=== PATIENT | male | born 1970 | race Caucasian/White ===

== ENCOUNTER 2017-06-14 11:10 | Inpatient (IN) | payer OTHER ==
[~2017-06-14] VITALS: Ht 177.8 cm; Wt 222.0 kg
[~2017-06-14 11:10] MED LIST: ACT30 PO; AMBIEN10 MG PO; AMOXICILLIN500 MG PO; BG MC; CAT0.1 PO; CLONIDINE HCL0.2 MG PO; CORE25 PO; DEXPF IV; ECO81 PO; FERL PO; FUROSEMIDE20 MG PO; GLIPIZIDE10 MG PO; GLU5 PO; HUMULIN R100 U/1 M1 SC; ISO10 PO; L40 PO; LAC PO; LEVOTHYROXINE0.05 M2 PO; LIPI10 PO; NOR5 PO; PHOS PO; POTASSIUM CHLO10 MEQ PO; PRO10I SQ; SINGULAIR10 MG PO; SYMBICORT1 AE2 INH; THERAGRAN-M1 TA4 PO; VANCOMYCIN PER PHARM MC; VENTOLIN H0.09 MG/A1 INH; VITAMIN D32000 I2 PO; VITC PO; ZITHROMAX Z-PA250 MG PO; ZOFI IM
[2017-06-14 12:44] LABS: BASOPHIL % 0.1 % (0-2); PLATELET COUNT 186 x10^3mcL (130-400)
[2017-06-14 12:47] LABS: RED CELL DISTRIBUTION WIDTH 18.5 % (11.5-14.5)
[2017-06-14 12:58] LABS: CK-MB 1.6 ng/mL (0-3.6)
[2017-06-14 13:00] LABS: BILIRUBIN TOTAL 0.92 mg/dL (0.20-1.00); CALCIUM 9.2 mg/dL (8.5-10.1); CARBON DIOXIDE 25.7 mmol/L (21-32); POTASSIUM SERUM 3.4 mmol/L (3.5-5.1); TOTAL PROTEIN, SERUM 7.6 g/dL (6.4-8.2)
[2017-06-14 13:01] LABS: ALBUMIN 3.1 g/dL (3.4-5.0)
[2017-06-14 13:02] LABS: CREATININE SERUM 7.1 mg/dL (0.7-1.3)
[2017-06-14 15:44] LABS: MAGNESIUM 2.2 mg/dL (1.8-2.4); PHOSPHOROUS 2.6 mg/dL (2.5-4.9)
[2017-06-14 15:51] LABS: T3 TOTAL 1.03 ng/mL
[2017-06-14 15:56] LABS: CHOLESTEROL/HDL RATIO 1.9
[2017-06-14 16:29] LABS: FREE T4 1.33 ng/dL (0.76-1.46); FREE THYROXINE INDEX 3.1 ug/dL (1.4-4.5); T4(THYROXINE) 8.9 ug/dL (4.7-13.3)
[2017-06-14 16:42] VITALS: BP 120/62
[2017-06-14 16:44] VITALS: BP 125/79
[2017-06-14] MEDS ORDERED: GLU5 PO (16:45)
[2017-06-14 17:28] LABS: UA SPECIFIC GRAVITY >=1.030 (1.005-1.035); microscopic required? YES; urine erythrocyte 2+ (NEGATIVE)
[2017-06-14 17:39] LABS: AMPHETAMINE QUAL UR POSITIVE (NEG <=1000)
[2017-06-14 19:30] VITALS: BP 127/79
[2017-06-14 23:00] VITALS: BP 102/54
[2017-06-15 03:00] VITALS: BP 99/49
[2017-06-15 04:13] LABS: CALCIUM 8.1 mg/dL (8.5-10.1); CARBON DIOXIDE 27.5 mmol/L (21-32); MAGNESIUM 2.1 mg/dL (1.8-2.4); PHOSPHOROUS 5.1 mg/dL (2.5-4.9); URIC ACID 7.7 mg/dL (3.5-7.2)
[2017-06-15 04:21] LABS: BASOPHIL % 0.2 % (0-2); PLATELET COUNT 160 x10^3mcL (130-400); RED CELL DISTRIBUTION WIDTH 17.2 % (11.5-14.5)
[2017-06-15 04:25] LABS: CREATININE SERUM 8.4 mg/dL (0.7-1.3)
[2017-06-15 08:00] VITALS: BP 110/75
[2017-06-15 11:40] VITALS: BP 112/61
[2017-06-15 16:03] VITALS: BP 141/71
[2017-06-15 20:30] VITALS: BP 133/69
[2017-06-16] VITALS (7 sets, daily range): BP systolic 104–127; BP diastolic 50–77
[2017-06-16 05:29] LABS: BASOPHIL % 0.1 % (0-2); PLATELET COUNT 147 x10^3mcL (130-400)
[2017-06-16 05:33] LABS: CALCIUM 8.3 mg/dL (8.5-10.1); CARBON DIOXIDE 26.2 mmol/L (21-32); MAGNESIUM 2.1 mg/dL (1.8-2.4); PHOSPHOROUS 4.6 mg/dL (2.5-4.9); POTASSIUM SERUM 3.9 mmol/L (3.5-5.1); RED CELL DISTRIBUTION WIDTH 18.8 % (11.5-14.5)
[2017-06-17] VITALS (12 sets, daily range): BP systolic 87–143; BP diastolic 46–93
[2017-06-17 05:37] LABS: BASOPHIL % 0.1 % (0-2); PLATELET COUNT 142 x10^3mcL (130-400); RED CELL DISTRIBUTION WIDTH 18.8 % (11.5-14.5)
[2017-06-17 05:50] LABS: CARBON DIOXIDE 26.6 mmol/L (21-32); MAGNESIUM 2.6 mg/dL (1.8-2.4); POTASSIUM SERUM 4.9 mmol/L (3.5-5.1)
[2017-06-18] VITALS (21 sets, daily range): BP systolic 85–123; BP diastolic 41–73
[2017-06-18 05:04] LABS: BASOPHIL % 0.2 % (0-2); PLATELET COUNT 142 x10^3mcL (130-400)
[2017-06-18 05:06] LABS: RED CELL DISTRIBUTION WIDTH 18.7 % (11.5-14.5)
[2017-06-18 05:15] LABS: CARBON DIOXIDE 26.6 mmol/L (21-32); MAGNESIUM 2.8 mg/dL (1.8-2.4); PHOSPHOROUS 8.5 mg/dL (2.5-4.9); POTASSIUM SERUM 4.8 mmol/L (3.5-5.1)
[2017-06-18 05:25] LABS: CREATININE SERUM 10.4 mg/dL (0.7-1.3)
[2017-06-19] VITALS (17 sets, daily range): BP systolic 98–139; BP diastolic 56–78
[2017-06-19 04:39] LABS: CALCIUM 8.8 mg/dL (8.5-10.1); CARBON DIOXIDE 25.2 mmol/L (21-32); MAGNESIUM 2.9 mg/dL (1.8-2.4)
[2017-06-19 04:43] LABS: BASOPHIL % 0.4 % (0-2); PLATELET COUNT 163 x10^3mcL (130-400)
[2017-06-19 04:49] LABS: PHOSPHOROUS 9.7 mg/dL (2.5-4.9)
[2017-06-19 04:50] LABS: CREATININE SERUM 11.6 mg/dL (0.7-1.3); POTASSIUM SERUM 5.7 mmol/L (3.5-5.1)
[2017-06-20] VITALS (20 sets, daily range): BP systolic 121–149; BP diastolic 59–100
[2017-06-20 04:31] LABS: BASOPHIL % 0.6 % (0-2); PLATELET COUNT 201 x10^3mcL (130-400)
[2017-06-20 04:33] LABS: RED CELL DISTRIBUTION WIDTH 19.2 % (11.5-14.5)
[2017-06-20 04:55] LABS: CALCIUM 8.4 mg/dL (8.5-10.1); CARBON DIOXIDE 23.2 mmol/L (21-32); MAGNESIUM 2.6 mg/dL (1.8-2.4); PHOSPHOROUS 8.7 mg/dL (2.5-4.9)
[2017-06-20 05:02] LABS: CREATININE SERUM 9.8 mg/dL (0.7-1.3); POTASSIUM SERUM 5.6 mmol/L (3.5-5.1)
[2017-06-21] VITALS (16 sets, daily range): BP systolic 110–162; BP diastolic 48–114
[2017-06-21 05:18] LABS: BASOPHIL % 0.4 % (0-2); PLATELET COUNT 219 x10^3mcL (130-400); RED CELL DISTRIBUTION WIDTH 18.9 % (11.5-14.5)
[2017-06-21 05:34] LABS: CALCIUM 8.5 mg/dL (8.5-10.1); CARBON DIOXIDE 23.8 mmol/L (21-32); MAGNESIUM 2.7 mg/dL (1.8-2.4); POTASSIUM SERUM 5.3 mmol/L (3.5-5.1)
[2017-06-21 05:48] LABS: CREATININE SERUM 10.4 mg/dL (0.7-1.3)
[2017-06-21 05:49] LABS: PHOSPHOROUS 9.7 mg/dL (2.5-4.9)
[2017-06-22] VITALS (19 sets, daily range): BP systolic 120–153; BP diastolic 70–99
[2017-06-22 05:37] LABS: BASOPHIL % 0.2 % (0-2); PLATELET COUNT 263 x10^3mcL (130-400)
[2017-06-22 05:50] LABS: RED CELL DISTRIBUTION WIDTH 18.5 % (11.5-14.5)
[2017-06-22 05:51] LABS: CALCIUM 8.4 mg/dL (8.5-10.1); CARBON DIOXIDE 22.2 mmol/L (21-32); MAGNESIUM 2.9 mg/dL (1.8-2.4)
[2017-06-22 05:57] LABS: CREATININE SERUM 10.3 mg/dL (0.7-1.3); PHOSPHOROUS 11.3 mg/dL (2.5-4.9); POTASSIUM SERUM 5.9 mmol/L (3.5-5.1)
[2017-06-23] VITALS (16 sets, daily range): BP systolic 125–165; BP diastolic 72–111
[2017-06-23 05:38] LABS: BASOPHIL % 0.5 % (0-2); PLATELET COUNT 259 x10^3mcL (130-400)
[2017-06-23 05:46] LABS: RED CELL DISTRIBUTION WIDTH 18.5 % (11.5-14.5)
[2017-06-23 05:48] LABS: CALCIUM 8.4 mg/dL (8.5-10.1); CARBON DIOXIDE 19.4 mmol/L (21-32); MAGNESIUM 2.9 mg/dL (1.8-2.4)
[2017-06-23 05:51] LABS: PHOSPHOROUS 13.2 mg/dL (2.5-4.9); POTASSIUM SERUM 6.1 mmol/L (3.5-5.1)
[2017-06-24] VITALS (12 sets, daily range): BP systolic 104–171; BP diastolic 73–102
[2017-06-24 05:57] LABS: BASOPHIL % 0.3 % (0-2); PLATELET COUNT 278 x10^3mcL (130-400)
[2017-06-24 06:04] LABS: CALCIUM 8.8 mg/dL (8.5-10.1); CARBON DIOXIDE 20.7 mmol/L (21-32); MAGNESIUM 2.7 mg/dL (1.8-2.4); POTASSIUM SERUM 5.4 mmol/L (3.5-5.1); RED CELL DISTRIBUTION WIDTH 18.4 % (11.5-14.5)
[2017-06-24 06:09] LABS: CREATININE SERUM 10.7 mg/dL (0.7-1.3)
[2017-06-25 07:52] VITALS: BP 131/87
[2017-06-25 11:45] VITALS: BP 106/69
[2017-06-25 16:20] VITALS: BP 76/36
[2017-06-25 16:31] VITALS: Ht 177.8 cm; Wt 222.0 kg
[2017-06-25 18:13] VITALS: BP 108/61
[2017-06-25 19:15] VITALS: BP 107/65
== END 2017-06-26 02:00 | disposition expired | DRG 870 ==
LOC: ED 11:10 → IC 14:22
PROVIDERS: Emergency Medicine; Family Medicine; Internal Medicine; ADMIT Family Medicine Sports Medicine
PROC: 5A1955Z Respiratory Ventilation, Greater than 96 Consecutive Hours (ICD-10-PCS; principal; 2017-06-14)
PROC: 0BH17EZ Insertion of Endotracheal Airway into Trachea, Via Natural or Artificial Opening (ICD-10-PCS; 2017-06-14)
PROC: 02HV33Z Insertion of Infusion Device into Superior Vena Cava, Percutaneous Approach (ICD-10-PCS; 2017-06-14)
PROC: B5181ZA Fluoroscopy of Superior Vena Cava using Low Osmolar Contrast, Guidance (ICD-10-PCS; 2017-06-14)
PROC: 5A1D70Z Performance of Urinary Filtration, Intermittent, Less than 6 Hours Per Day (ICD-10-PCS; 2017-06-15)
PROC: 5A1D70Z Performance of Urinary Filtration, Intermittent, Less than 6 Hours Per Day (ICD-10-PCS; 2017-06-18)
PROC: 5A1D70Z Performance of Urinary Filtration, Intermittent, Less than 6 Hours Per Day (ICD-10-PCS; 2017-06-19)
PROC: 5A1D70Z Performance of Urinary Filtration, Intermittent, Less than 6 Hours Per Day (ICD-10-PCS; 2017-06-20)
PROC: 5A1D70Z Performance of Urinary Filtration, Intermittent, Less than 6 Hours Per Day (ICD-10-PCS; 2017-06-21)
PROC: 5A1D70Z Performance of Urinary Filtration, Intermittent, Less than 6 Hours Per Day (ICD-10-PCS; 2017-06-23)
PROC: 5A1D70Z Performance of Urinary Filtration, Intermittent, Less than 6 Hours Per Day (ICD-10-PCS; 2017-06-24)
DX: A41.02 Sepsis due to Methicillin resistant Staphylococcus aureus (principal); J96.01 Acute respiratory failure with hypoxia; N17.0 Acute kidney failure with tubular necrosis; E43 Unspecified severe protein-calorie malnutrition; G92 Toxic encephalopathy; N18.6 End stage renal disease; J69.0 Pneumonitis due to inhalation of food and vomit; D68.69 Other thrombophilia; N39.0 Urinary tract infection, site not specified; I13.2 Hypertensive heart and chronic kidney disease with heart failure and with stage 5 chronic kidney disease, or end stage renal disease; Z68.44 Body mass index [BMI] 60.0-69.9, adult; E87.1 Hypo-osmolality and hyponatremia; J45.901 Unspecified asthma with (acute) exacerbation; R65.20 Severe sepsis without septic shock; E03.9 Hypothyroidism, unspecified; G47.33 Obstructive sleep apnea (adult) (pediatric); E66.01 Morbid (severe) obesity due to excess calories; F15.129 Other stimulant abuse with intoxication, unspecified; E78.5 Hyperlipidemia, unspecified; E87.6 Hypokalemia; G47.00 Insomnia, unspecified; E11.65 Type 2 diabetes mellitus with hyperglycemia; E11.22 Type 2 diabetes mellitus with diabetic chronic kidney disease; R80.9 Proteinuria, unspecified; M51.34 Other intervertebral disc degeneration, thoracic region; Z99.2 Dependence on renal dialysis; I48.91 Unspecified atrial fibrillation; Z66 Do not resuscitate
CPT/HCPCS: 36556; 36600; 82962; 83880; 84439; 90658; 90732; 97110-GP; A4628; C9113; G0480; J1100; J1170; J1630; J1642; J1644; J1815; J1885; J1940; J2250; J2270; J2543; J3370; J3490; J7030; J7620; J7626; Q0092